=== PATIENT | female | born 1965 | race Caucasian/White ===

== ENCOUNTER → 2017-09-06 | Outpatient (CLI) | payer BC | END | disposition home or self-care (01) | LOC: LABWHC1 16:31 | PROVIDERS: ATTEND Obstetrics & Gynecology | DX: N83.202 Unspecified ovarian cyst, left side (principal) | CPT/HCPCS: 36415; 86304 ==

== ENCOUNTER → 2017-10-17 | Outpatient (CLI) | payer BC ==
[2017-10-17 11:27] LABS: Basophils % (A) 1 %; Eosinophils # (A) 0.1 k/uL (0-0.7); Eosinophils % (A) 2 %; HCT 43.6 % (34.0-46.0); HGB 13.5 gm/dL (11.4-16.0); Lymphocytes # (A) 1.7 k/uL (1.0-4.8); Lymphocytes % (A) 26 %; MCH 30.2 pg (25.0-35.0); MCHC 30.9 g/dL (31.0-37.0); MCV 97.5 fL (80.0-100.0); Monocytes # (A) 0.3 k/uL (0-1.0); Monocytes % (A) 4 %; Neutrophils # (A) 4.3 k/uL (1.3-7.7); Neutrophils % (A) 66 %; Platelet Count 400 k/uL (150-450); RBC 4.47 m/uL (3.80-5.40); RDW 12.3 % (11.5-15.5); WBC 6.6 k/uL (3.8-10.6)
[2017-10-17 11:30] LABS: Anion Gap 9 mmol/L; Blood Urea Nitrogen 16 mg/dL (7-17); Carbon Dioxide 30 mmol/L (22-30); Chloride 101 mmol/L (98-107); Glucose 102 mg/dL (74-99); Potassium 4.9 mmol/L (3.5-5.1); Sodium 140 mmol/L (137-145)
== END | disposition home or self-care (01) ==
LOC: LABPAT 10:37
PROVIDERS: ATTEND Obstetrics & Gynecology
DX: Z01.818 Encounter for other preprocedural examination (principal); Z01.812 Encounter for preprocedural laboratory examination
CPT/HCPCS: 36415; 80048; 85025; 86850; 86900; 86901; 93005

== ENCOUNTER → 2017-10-17 | Outpatient (CLI) | payer BC ==
[2017-10-17 17:38] LABS: Progesterone <0.2 ng/mL
[2017-10-19 19:17] LABS: Estrogens Total 120 pg/mL
[2017-10-20 10:36] LABS: Pregnenolone 20 ng/dL (22-237)
== END | disposition home or self-care (01) ==
LOC: LABWHC1 10:41
PROVIDERS: ATTEND Psychiatry & Neurology Neurology
DX: R53.83 Other fatigue (principal); R63.4 Abnormal weight loss; N92.0 Excessive and frequent menstruation with regular cycle; N83.209 Unspecified ovarian cyst, unspecified side
CPT/HCPCS: 36415; 82533; 82670; 82672; 83001; 83002; 84140; 84144

== ENCOUNTER 2017-10-24 06:04 | Day surgery (SDC) | payer BC ==
[2017-10-17 12:42] VITALS: BMI 23.5
[~2017-10-24 06:04] MED LIST: DEXAMETHASONE SOD PHOSPHATE 10 MG/ML 1 ML VIAL IV ONE; HYDROmorphone 0.5 MG/0.5 ML SYRINGE IVP PRN; MIDAZOLAM 2 MG/2 ML VIAL IV PRN; ONDANSETRON 4 MG/2 ML VIAL IVP ONE; ceFAZolin IN SWFI 2 GM/20 ML SYRINGE IVP ONE
[2017-10-24] MEDS ORDERED: LIDOCAINE 1% 20 ML VIAL (10MG/ML) FOR IV START INTRADERMA ONE ×2 (06:30)
[2017-10-24] MEDS: LACTATED RINGERS 1,000 ML IV SCH ×2 (06:41→12:08)
[2017-10-24] MEDS ORDERED: BUPIVACAINE (PF) 0.25% 30 ML VIAL SQ ONE ×2 (07:38)
--- NOTE | 2017-10-24 07:46 | P.HPOB ---
History of Present Illness H&P Date: 10/24/17 Chief Complaint: Ovarian mass: Pelvic pain Is a 51-year-old female who on ultrasound was revealed to have a 8 x 7.9 cm with 2 complex cysts on her left ovary. She was seen at [facility] and was offered surgery there but as they felt the lesions were benign she is opted to return to [place] and have her surgery done locally. The cysts have been present for a extended timeframe and symptoms of pain are exacerbated by intercourse and prolonged standing. She also has bouts of constipation due to the masses. There are some fat-like elements consistent with a dermoid cyst within the left ovary as well and the expectation with normal CA-125 sit this is a dermoid cyst. Her physical exam is generally unremarkable, her vital signs are stable and afebrile. Heart regular, lungs clear, extremities are without pain. Her abdomen is soft and essentially nontender. Pelvic exam reveals some fullness in left adnexa. Assessment left ovarian mass. Plan robotic-assisted laparoscopic hysterectomy with bilateral salpingo- oophorectomy. Risks/benefits/alternatives to this procedure were discussed with the patient in detail and all questions were answered for the patient prior to proceeding to the operating room. Risks did include but were not limited to damage to bladder, bowel, vascular injuries, nerve injuries, bleeding , and infection. Past Medical History Past Medical History: Hyperlipidemia Additional Past Medical History / Comment(s): IBS History of Any Multi-Drug Resistant Organisms: None Reported Additional Past Surgical History / Comment(s): hemorrhoidectomy Past Anesthesia/Blood Transfusion Reactions: No Reported Reaction Smoking Status: Never smoker - Past Family History Mother Family Medical History: No Reported History Medications and Allergies Home Medications Medication Instructions Recorded Confirmed Type Atorvastatin [Lipitor] 20 mg PO HS 08/23/17 10/24/17 History Balziva 1 tab PO HS 08/23/17 10/24/17 History Cholecalciferol [Vitamin D3] 1,000 unit PO DAILY 08/23/17 10/24/17 History Multivitamins, Thera [Multivitamin 1 tab PO DAILY 08/23/17 10/24/17 History (formulary)] Spironolactone [Aldactone] 25 mg PO HS 08/23/17 10/24/17 History Sennosides-Docusate Sodium 1 tab PO HS 10/17/17 10/24/17 History [Senokot-S] Allergies Allergy/AdvReac Type Severity Reaction Status Date / Time Iodinated Contrast- Oral and Allergy Rash/Hives Verified 10/24/17 06:17 IV Dye gadobenic acid AdvReac Nausea & Verified 10/24/17 06:17 [From Multihance] Vomiting hydromorphone [From Dilaudid] AdvReac Nausea & Verified 10/24/17 06:23 Vomiting Exam Osteopathic Statement: *. No significant issues noted on an osteopathic structural exam other than those noted in the History and Physical/Consult. - Vital Signs Vital signs: Vital Signs Temp Pulse Resp BP Pulse Ox 10/24/17 06:25 98.2 F 76 18 145/84 98
[2017-10-24] MEDS ORDERED: MIDAZOLAM 2 MG/2 ML VIAL ONE (07:50)
[2017-10-24] MEDS ORDERED: GLYCOPYRROLATE 0.2 MG/ML 2 ML VIAL ONE (07:50)
[2017-10-24] MEDS ORDERED: DEXAMETHASONE SOD PHOS (MDV) 100 MG/10 ML VIAL ONE (07:50)
[2017-10-24] MEDS ORDERED: KETOROLAC 30 MG/ML 1 ML VIAL ONE (07:50)
[2017-10-24] MEDS ORDERED: PROPOFOL 10 MG/ML 20 ML VIAL IV ONE (07:50)
[2017-10-24] MEDS ORDERED: fentaNYL (PF) 50 MCG/ML 2 ML AMP ONE (07:50)
[2017-10-24] MEDS ORDERED: NEOSTIGMINE 1 MG/ML 10 ML VIAL ONE (07:50)
[2017-10-24] MEDS ORDERED: ROCURONIUM BROMIDE 10 MG/ML 10 ML VIAL IV ONE (07:50)
[2017-10-24] MEDS ORDERED: SIMETHICONE 80 MG CHEWABLE PO PRN (10:27)
[2017-10-24] MEDS ORDERED: KETOROLAC 30 MG/ML 1 ML VIAL IVP PRN (10:27)
[2017-10-24] MEDS ORDERED: ONDANSETRON 4 MG/2 ML VIAL IVP PRN (10:27)
[2017-10-24] MEDS ORDERED: Acetaminophen-Codeine 300-30mg TAB PO PRN ×2 (10:27)
--- NOTE | 2017-10-24 10:27 | P.OP ---
Date of Procedure: 10/24/17 Preoperative Diagnosis: Ovarian mass Postoperative Diagnosis: Same with adhesions Procedure(s) Performed: Robotic-assisted laparoscopic hysterectomy with bilateral salpingo-oophorectomy and lysis of adhesions Anesthesia: FLORY Surgeon: Duong Polanco Chairman & Ceo #1: Belle Manrique Estimated Blood Loss (ml): 15 IV fluids (ml): 1,000 Urine output (ml): 80 Pathology: other (Uterus, tubes, cervix, ovaries) Condition: stable Operative Findings: Normal uterus and right tube and ovary however left tube showed a torsion as well as a grossly enlarged likely dermoid cyst stuck to the posterior cul-de- sac in case in adhesions Description of Procedure: Patient was taken to the operating suite where a general anesthetic was found be adequate. She was prepped and draped in the normal sterile fashion placed in the dorsal lithotomy position. Initially a speculum was inserted into the vagina and the Krissy cervix identified and grasped with double-tooth tenaculum. Once this was accomplished cervix was dilated and with an 8 cm uterine measurement the head a 2 cm cuff measurement the Cynthia manipulator was inserted without difficulty. Stitches had been placed at 3 and 9 to assist in removal of the uterus. Once this was accomplished Pulido cath was placed and other instruments were removed from vagina. Gloves were changed and attention was turned to abdominal portion procedure where 3 mL of quarter percent Marcaine was injected periumbilically. Through this injected anesthetic which was 2 cm above the umbilicus and 8 mm skin incision was made and through this incision the camera was inserted without difficulty under direct visualization. Once peritoneal placement was assured gas was allowed to insufflate the entire abdomen and patient was then placed in steep Trendelenburg position. Was accomplished 2 lateral ports were placed 10 cm lateral to the umbilicus is were 8 no new skin incisions and robotic ports and sleeves were inserted fourth port was then placed between the left lateral and medial ports slightly superior to the medial port this was 1 cm in size and a 10 mm trocar was placed for an assistance port. Camera port was then removed and a robotic camera port was placed lap scopic was then removed and robot was brought in and docked. Once fully docked I did break scrub and go to the console with a scissor and the one arm and a [place] grasper in the 2 arm observations pelvis were noted uterus initially was elevated and tipped to the left-hand side the right-hand side good motion of the uterus and right ovary were noted. However left tube and ovary were not even able to visualize initially as it was sitting deep in the cul-de-sac didn't by bowel. We bluntly and gently move the bowel out of the field so we can see the ovary it was encased almost completely and filmy adhesions which were bluntly dissected free. Due to the weight of the ovary and the adhesions throughout the pelvis initially the ovary would not elevate and decision to free at least the left side of the uterus so that I would have a little bit more anchor to grasped with the remaining portion of the tube and infundibular pelvic ligament. Therefore the utero-ovarian ligament was cauterized and transected as well as the fallopian tube tissues. Probably with tissues through the mesosalpinx were then cauterized and cut to the round ligament round ligament was cauterized transected and at this point we skeletonized the vascularity. Once this was completed the bladder flap was identified and undermined with Maryland and incised with a scissor across face the uterus allowing for us to bluntly dissect the bladder out of the operative field. Once this was fully accomplished we exchanged the scissor for a cardia grasper's that we could have a ability to grasp the ovary on had multiple angles Dr. Rasmussen held the bowel gently out of the way's that I could visualize the ovary and will using very gentle blunt dissection we were able to free the adhesions from the ovary and while undermining into the upper ovary above the cyst capsule we're able to elevate the ovary out of the pelvis and complete the adhesiolysis. Once this was completed the infundibulopelvic was then cauterized Moe was removed and scissor was replaced and this tissue was cut. Fallopian tube was also excised at this point. Tube and uterus were then set aside and attention was returned to the uterus. Since the left-sided fully developed the right sinus similar fashion was fully developed bite initially going to the infundibular pelvic ligament cauterizing cutting this tissue along with the broad ligament tissues all the way to the round ligament. It is sore fashion this was then developed and once the blood vessels were cauterized bilaterally the balloon was blown up in the Cynthia manipulator and an anterior colpotomy was made. Following in initially a counterclockwise fashion we're able to go for approximately 12:00 to 7:00 and then switching to the other side going in a clockwise fashion cheating head when necessary to maintain hemostasis on we follow the couple all the way around until it met the 7:00 area and 360 had been accomplished. Uterus was then brought down into the vagina to maintain pneumoperitoneum. Attempts initially were made to ring the ovary through the vaginal opening however the ovary was too big to fit through the vaginal opening therefore was again set aside. There was one blood vessel on the vaginal cuff that was bleeding and using bipolar cautery we are able to make to obtain excellent hemostasis. Instruments were then exchanged for a make suture cut and cardia grasper and using the lock suture the vaginal cuff was closed in a running fashion. Once cuff was closed doing 3 stitches back upon itself to hold the stitch and placed in the uterus and cervix were with right ovary were brought into the vagina and out for pathology. At this point ovary was regrasped with a Moe grasper and a gallbladder bag was brought into the pelvis. Ovary was then placed in the gallbladder bag and an incision was made to allow for drainage and liquefication of the ovary so that it would be soft enough to be able to removed through the port fascia was then closed and bag was brought to the abdominal wall and then removed with gentle traction. Once it was removed ovary was sent to pathology for evaluation port and sleeve were reinserted and pelvis was suction irrigated. No bleeding is noted on any of the suture lines were on the cuff therefore instruments were removed and gas was left to expel the abdomen with 5 deep breaths provided. At this point Dr. Rasmussen close incision subcuticularly and I did do a cystoscopy with excellent flow noted from both ureteral jets. Patient tolerated surgery well sponge, lap, needle counts were all correct 2. Patient was then taken to the recovery room in stable and satisfactory condition.
[2017-10-24] MEDS: MORPHINE SULFATE 4 MG/ML SYRINGE IV ONE ×4 (10:35→11:14)
[2017-10-24] MEDS ORDERED: ONDANSETRON 4 MG/2 ML VIAL IVP ONE (10:40)
[2017-10-24] MEDS ORDERED: SENNOSIDES-DOCUSATE SODIUM 1 EACH TAB PO SCH (21:00)
[2017-10-25 06:57] LABS: Basophils % (A) 0 %; Eosinophils # (A) 0.1 k/uL (0-0.7); Eosinophils % (A) 1 %; HCT 34.8 % (34.0-46.0); HGB 11.4 gm/dL (11.4-16.0); Lymphocytes # (A) 1.8 k/uL (1.0-4.8); Lymphocytes % (A) 18 %; MCH 31.1 pg (25.0-35.0); MCHC 32.7 g/dL (31.0-37.0); MCV 95.2 fL (80.0-100.0); Monocytes # (A) 0.6 k/uL (0-1.0); Monocytes % (A) 5 %; Neutrophils # (A) 7.9 k/uL (1.3-7.7); Neutrophils % (A) 75 %; Platelet Count 307 k/uL (150-450); RBC 3.65 m/uL (3.80-5.40); RDW 12.3 % (11.5-15.5); WBC 10.4 k/uL (3.8-10.6)
[2017-10-25 08:30] VITALS: BP 113/88; PULSE 84; RESP 16; TEMP 98.5
--- NOTE | 2017-10-25 09:01 | P.DS ---
Providers Expected date of discharge: 10/25/17 Attending physician: Duong Polanco Primary care physician: Stated None Hospital Course: When is doing very well postop day 1. She is involuting, voiding and tolerating her diet. She voices no complaints other than abdominal tenderness. Her vital signs are stable and afebrile. Heart regular, lungs clear, extremities are without pain. Abdomen is soft incisions appear Intact. Assessment postop day 1. Plan discharged home follow up with me in 1 week. Prescription for Motrin was sent to her pharmacy. Discharge instructions thoroughly reviewed and all questions are answered for her prior to her discharge and she is stable for discharge at this time. Patient Condition at Discharge: Good Plan - Discharge Summary Discharge Rx Participant: Yes New Discharge Prescriptions: New Ibuprofen [Motrin] 600 mg PO Q6HR PRN #30 tab PRN Reason: Pain No Action Multivitamins, Thera [Multivitamin (formulary)] 1 tab PO DAILY Cholecalciferol [Vitamin D3] 1,000 unit PO DAILY Spironolactone [Aldactone] 25 mg PO HS Atorvastatin [Lipitor] 20 mg PO HS Balziva 1 tab PO HS Sennosides-Docusate Sodium [Senokot-S] 1 tab PO HS Discharge Medication List Atorvastatin [Lipitor] 20 mg PO HS 08/23/17 [History] Balziva 1 tab PO HS 08/23/17 [History] Cholecalciferol [Vitamin D3] 1,000 unit PO DAILY 08/23/17 [History] Multivitamins, Thera [Multivitamin (formulary)] 1 tab PO DAILY 08/23/17 [History ] Spironolactone [Aldactone] 25 mg PO HS 08/23/17 [History] Sennosides-Docusate Sodium [Senokot-S] 1 tab PO HS 10/17/17 [History] Ibuprofen [Motrin] 600 mg PO Q6HR PRN #30 tab 10/25/17 [Rx] Follow up Appointment(s)/Referral(s): Duong Polanco DO [Doctor of Osteopathic Medicine] - 1 Week Activity/Diet/Wound Care/Special Instructions: No heavy lifting, limit stairs and driving, and pelvic rest. If any high temperatures, heavy bleeding, or severe pain call my office Discharge Disposition: HOME SELF-CARE
== END 2017-10-25 15:30 | disposition home or self-care (01) ==
LOC: OR 06:04 → 4FBP 10:25 → OR 10-25 15:30
PROVIDERS: ATTEND Obstetrics & Gynecology
DX: N83.9 Noninflammatory disorder of ovary, fallopian tube and broad ligament, unspecified (principal); N87.1 Moderate cervical dysplasia; N85.9 Noninflammatory disorder of uterus, unspecified; N80.0 Endometriosis of uterus; N83.311 Acquired atrophy of right ovary; N83.8 Other noninflammatory disorders of ovary, fallopian tube and broad ligament; D27.1 Benign neoplasm of left ovary; N83.522 Torsion of left fallopian tube; N73.6 Female pelvic peritoneal adhesions (postinfective); E78.5 Hyperlipidemia, unspecified; K58.9 Irritable bowel syndrome, unspecified; Z79.899 Other long term (current) drug therapy; Z79.3 Long term (current) use of hormonal contraceptives; Z91.041 Radiographic dye allergy status
CPT/HCPCS: 81025; 86900; 86901; 88108; 88305; 85025; 86850; 88342; 88309; 58571; J2250; J2270; J1100 ×2; J2710; J2405; J3010; J1885; J2704; J0690

== ENCOUNTER → 2018-03-07 | Outpatient (CLI) | payer BC ==
--- NOTE | 2018-03-08 10:09 | MM ---
Reason for exam: screening (asymptomatic). Last mammogram was performed 4 years and 8 months ago. History: Patient is postmenopausal. Family history of breast cancer in paternal grandmother. Taking hormonal contraceptives for 18 years beginning at age 27. Taking estrogen beginning at age 51. Physical Findings: A clinical breast exam by your physician is recommended on an annual basis and results should be correlated with mammographic findings. MG 3D Screening Mammo W/Cad Bilateral CC and MLO view(s) were taken. Prior study comparison: July 10, 2013, CAD bilateral diagnostic mammogram. January 14, 2011, CAD bilateral diagnostic mammogram. The breast tissue is heterogeneously dense. This may lower the sensitivity of mammography. Finding: There are typically benign round, grouped/clustered calcifications in the lower outer quadrant, middle position of the left breast. There is no discrete abnormality. ASSESSMENT: Benign, BI-RAD 2 RECOMMENDATION: Routine screening mammogram of both breasts in 1 year.
== END | disposition home or self-care (01) ==
LOC: RADMAMWWP 09:58
PROVIDERS: ATTEND Obstetrics & Gynecology
DX: Z12.31 Encounter for screening mammogram for malignant neoplasm of breast (principal)
CPT/HCPCS: 77063; 77067

== ENCOUNTER → 2018-06-08 | Outpatient (CLI) | payer BC ==
[2018-06-08 08:27] LABS: Albumin 4.4 g/dL (3.5-5.0); Calcium 9.9 mg/dL (8.4-10.2); Potassium 4.6 mmol/L (3.5-5.1); Total Bilirubin 0.5 mg/dL (0.2-1.3); Total Protein 7.4 g/dL (6.3-8.2)
[2018-06-08 08:49] LABS: T4, Free (Free Thyroxine) 1.16 ng/dL (0.78-2.19)
[2018-06-08 16:24] LABS: Vitamin D 25 Hydroxy 28.7 ng/mL (30.0-100.0)
[2018-06-08 16:26] LABS: Iron Saturation 43.67 (12.00-45.00); Progesterone <0.2 ng/mL
[2018-06-08 16:41] LABS: Folate, Serum 16.4 ng/mL
[2018-06-09 18:56] LABS: Estrogens Total 370 pg/mL
== END | disposition home or self-care (01) ==
LOC: LABWHC1 07:25
PROVIDERS: ATTEND Psychiatry & Neurology Pain Medicine
DX: R53.83 Other fatigue (principal)
CPT/HCPCS: 36415; 80053; 82306; 82533; 82607; 82670; 82672; 82728; 82746; 83001; 83002; 83540; 83550; 84144; 84146; 84207; 84425; 84439; 84443; 84466; 84481; 84591

== ENCOUNTER → 2020-06-04 | Outpatient (CLI) | payer BC ==
--- NOTE | 2020-06-09 08:27 | MM ---
Reason for exam: screening (asymptomatic). Last mammogram was performed 2 years and 3 months ago. History: Patient is postmenopausal. Family history of breast cancer in paternal grandmother. Taking hormonal contraceptives for 18 years beginning at age 27. Taking estrogen for 3 years beginning at age 51. Physical Findings: A clinical breast exam by your physician is recommended on an annual basis and results should be correlated with mammographic findings. MG Screening Mammo w CAD Bilateral CC and MLO view(s) were taken. Prior study comparison: March 07, 2018, bilateral MG 3d screening mammo w/cad. July 10, 2013, CAD bilateral diagnostic mammogram. The breast tissue is heterogeneously dense. This may lower the sensitivity of mammography. Calcifications in the left breast, stable. No significant changes when compared with prior studies. ASSESSMENT: Benign, BI-RAD 2 RECOMMENDATION: Routine screening mammogram of both breasts in 1 year.
== END | disposition home or self-care (01) ==
LOC: RADMAMWWP 16:23
PROVIDERS: ATTEND Obstetrics & Gynecology
DX: Z12.31 Encounter for screening mammogram for malignant neoplasm of breast (principal); Z80.3 Family history of malignant neoplasm of breast
CPT/HCPCS: 77067

== ENCOUNTER → 2021-08-07 | Outpatient (CLI) | payer BC ==
--- NOTE | 2021-08-07 16:09 | BD ---
EXAMINATION TYPE: Axial Bone Density DATE OF EXAM: 08/07/2021 COMPARISON: NONE CLINICAL HISTORY: Height: 63.2 IN Weight: 136 LBS RISK FACTORS HISTORY OF: Active: YES Diet low in dairy products/other sources of calcium: YES Postmenopausal woman: TOTAL HYST AGE 52 Take estrogen and/or progesterone medications: YES How long: SINCE AGE 52 MEDICATIONS: Additional Medications: VIT D, PREMARIN, SPIROLACTONE, LIPITOR, ELDERBERRY EXAM MEASUREMENTS: Bone mineral densitometry was performed using the [employer] System. Bone mineral density as measured about the Lumbar spine is: ----- L1-L4(G/cm2): 1.147 T Score Values are as follows: ----- L2: -0.1 ----- L3: -0.1 ----- L4: -0.8 ----- L1-L4: -0.3 Bone mineral density BASELINE Bone mineral density about the R hip (g/cm2): 0.843 Bone mineral density about the L hip (g/cm2): 0.895 T Score values are as follows: -----R Neck: -1.4 -----L Neck: -1.0 -----R Total: -0.7 -----L Total: -0.6 Bone mineral density BASELINE IMPRESSION: Osteopenia (T Score between -2.5 and -1). There is slightly increased risk of fracture and the patient may be considered for treatment. Re-Screen 2-5 years. NOTE: T-SCORE=SD OF THE YOUNG ADULT MEAN.
== END | disposition home or self-care (01) ==
LOC: RADBDWWP 14:16
PROVIDERS: ATTEND Obstetrics & Gynecology
DX: M85.89 Other specified disorders of bone density and structure, multiple sites (principal); Z78.0 Asymptomatic menopausal state
CPT/HCPCS: 77080

== ENCOUNTER → 2021-08-11 | Outpatient (CLI) | payer BC ==
--- NOTE | 2021-08-13 11:54 | MM ---
Reason for exam: screening (asymptomatic). Last mammogram was performed 1 year and 2 months ago. History: Patient is postmenopausal. Family history of breast cancer in paternal grandmother. Took hormonal contraceptives for 18 years beginning at age 27. Taking estrogen for 4 years beginning at age 51. Physical Findings: A clinical breast exam by your physician is recommended on an annual basis and results should be correlated with mammographic findings. MG Screening Mammo w CAD Bilateral CC, MLO, and XCCL view(s) were taken. Prior study comparison: June 04, 2020, bilateral MG screening mammo w CAD. March 07, 2018, bilateral MG 3d screening mammo w/cad. The breast tissue is heterogeneously dense. This may lower the sensitivity of mammography. There are benign appearing round calcifications bilaterally. There is no discrete abnormality. ASSESSMENT: Benign, BI-RAD 2 RECOMMENDATION: Routine screening mammogram of both breasts in 1 year.
== END | disposition home or self-care (01) ==
LOC: RADMAMWWP 07:07
PROVIDERS: ATTEND Obstetrics & Gynecology
DX: Z12.31 Encounter for screening mammogram for malignant neoplasm of breast (principal); Z80.3 Family history of malignant neoplasm of breast; Z78.0 Asymptomatic menopausal state
CPT/HCPCS: 77067

== ENCOUNTER → 2022-06-10 | Outpatient (CLI) | payer BC ==
--- NOTE | 2022-06-10 08:41 | MM ---
Reason for Exam: Clinical finding. Last screening mammogram was performed 10 month(s) ago. Patient History: Menarche at age 15. First Full-Term at age 30. Late child-bearing (after 30). Left ovary removed at age 51. Right ovary removed at age 51. Hysterectomy at age 51. Postmenopausal. Currently using Estrogen, beginning at age 51 for 4 years. Hormonal Contraceptives, starting at age 27 for 18 years. Paternal grandmother had breast cancer, age 70. Risk Values: Amber 5 year model risk: 1.6%. NCI Lifetime model risk: 10.0%. Prior Study Comparison: 03/07/2018 Bilateral Screening Mammogram, [facility]. 06/04/2020 Bilateral Screening Mammogram, [facility]. 08/11/2021 Bilateral Screening Mammogram, [facility]. Tissue Density: Left: The breast tissue is heterogeneously dense. This may lower the sensitivity of mammography. Findings: Analyzed By CAD. Areas of asymmetric density remains unchanged. Medial superficial calcifications are unchanged. No significant change from prior exams. Overall Assessment: Incomplete: need additional imaging evaluation, BI-RAD 0 Management: Diagnostic Breast Ultrasound of the left breast. Targeted to the patient's area of pain. Electronically signed and approved by: Harshal Calixto M.D. Radiologist
--- NOTE | 2022-06-10 09:13 | USB ---
Patient History: Menarche at age 15. First Full-Term at age 30. Late child-bearing (after 30). Left ovary removed at age 51. Right ovary removed at age 51. Hysterectomy at age 51. Postmenopausal. Currently using Estrogen, beginning at age 51 for 4 years. Hormonal Contraceptives, starting at age 27 for 18 years. Paternal grandmother had breast cancer, age 70. Risk Values: Amber 5 year model risk: 1.6%. NCI Lifetime model risk: 10.0%. Prior Study Comparison: 03/07/2018 Bilateral Screening Mammogram, [facility]. 06/04/2020 Bilateral Screening Mammogram, [facility]. 08/11/2021 Bilateral Screening Mammogram, [facility]. Findings: The lateral section of the breast of the left breast, the axilla of the left breast and the retroareolar of the left breast were scanned. Targeted ultrasound left breast lateral half from the 12 to 6:00 position including the subareolar region and axilla. There is no solid or cystic lesion or axillary lymphadenopathy.. Overall Assessment: Negative, BI-RAD 1 Management: Screening Mammogram of both breasts in 2 months. 1. Patient should continue monthly self breast exams. 2. A clinical breast exam by your physician is recommended on an annual basis. 3. This exam should not preclude additional follow-up of suspicious palpable abnormalities. Results were given to the patient verbally at the time of exam. Electronically signed and approved by: Harshal Calixto M.D. Radiologist
[2022-06-10 14:57] LABS: HCT 40.3 % (37.2-46.3); MCH 30.8 pg (27.0-32.0); MCHC 32.3 g/dL (32.0-37.0); MCV 95.5 fL (80.0-97.0); Mean Platelet Volume 10.8 fL (9.5-12.2); NRBC Per 100 WBC 0 /100 WBCS (0.0-0.0); Platelet Count 310 X 10*3/uL (140-440); RBC 4.22 X 10*6/uL (4.10-5.20); RDW 12.2 % (11.5-14.5); WBC 3.62 X 10*3/uL (4.50-10.00)
[2022-06-10 15:46] LABS: T4, Free (Free Thyroxine) 1.29 ng/dL (0.800-1.800)
== END | disposition home or self-care (01) ==
LOC: RADMAMWWP 08:09
PROVIDERS: ATTEND Obstetrics & Gynecology
DX: Z13.0 Encounter for screening for diseases of the blood and blood-forming organs and certain disorders involving the immune mechanism (principal); Z90.721 Acquired absence of ovaries, unilateral; Z80.3 Family history of malignant neoplasm of breast
CPT/HCPCS: 77061; 77065; 82306; 84439; 84443; 85027

== ENCOUNTER → 2024-05-01 | Outpatient (CLI) | payer BC ==
--- NOTE | 2024-05-06 11:37 | MM ---
Reason for Exam: Screening (asymptomatic). Last mammogram was performed 2 year(s) and 9 month(s) ago. Patient History: Menarche at age 15. First Full-Term at age 30. Late child-bearing (after 30). Left ovary removed at age 51. Right ovary removed at age 51. Hysterectomy at age 51. Postmenopausal. Currently using Estrogen, beginning at age 51 for 4 years. Hormonal Contraceptives, starting at age 27 for 18 years. Paternal grandmother had breast cancer, age 70. Risk Values: Amber 5 year model risk: 1.7%. NCI Lifetime model risk: 9.6%. Prior Study Comparison: 06/04/2020 Bilateral Screening Mammogram, [facility]. 08/11/2021 Bilateral Screening Mammogram, [facility]. 06/10/2022 Left MG 3D diag mammo w/cad LT, [facility]. Tissue Density: There are scattered areas of fibroglandular density. Findings: Analyzed By CAD. Right breast: There is no suspicious group of microcalcifications or new suspicious mass. Left breast: There is no suspicious group of microcalcifications or new suspicious mass. Overall Assessment: Negative, BI-RAD 1 Management: Screening Mammogram of both breasts in [address] [facility] will attempt to contact patient to return for supplemental views and ultrasound if indicated. Patient should continue monthly self-breast exams. A clinical breast exam by your physician is recommended on an annual basis. This exam should not preclude additional follow-up of suspicious palpable abnormalities. Note on Amber scores and lifetime risk: 1. A Amber score greater than 3% is considered moderate risk. If this is the case, consider specialist referral to assess eligibility for a risk reducing agent. 2. If overall lifetime risk for the development of breast cancer is 20% or higher, the patient may qualify for future screening with alternating mammogram and breast MRI. Electronically signed and approved by: Omar Solorzano DO
== END | disposition home or self-care (01) ==
LOC: RADMAMWWP 06:57
PROVIDERS: ATTEND Obstetrics & Gynecology
DX: Z12.31 Encounter for screening mammogram for malignant neoplasm of breast
CPT/HCPCS: 77067